=== PATIENT | female | born 1950 | race Caucasian/White ===

== ENCOUNTER 2017-02-26 10:59 | Emergency (ER) | payer MEDICARE, MEDICAID ==
[~2017-02-26] VITALS: Ht 157.5 cm; Wt 77.5 kg
[~2017-02-26 10:59] MED LIST: ASPI-496 PO; LINA5TAB PO; LISI1TAB5 PO; PIOG30TA4 PO; PRAV40TA2 PO; PREG200C PO
[2017-02-26] MEDS ORDERED: SODIUM CHLORIDE FLUSH 10ML SYR IVF ONE (12:00)
[2017-02-26] MEDS ORDERED: SODIUM CHLORIDE 0.9% 1,000ML IVBOLUS ONE (12:00)
[2017-02-26] MEDS ORDERED: ONDANSETRON 2MG/ML, 2ML IVPush ONE (12:00)
[2017-02-26] MEDS ORDERED: ONDANSETRON 2MG/ML, 2ML ONE (12:05)
[2017-02-26 12:14] LABS: HEMOGLOBIN 11.3 g/dL (11.7-16.4); WHITE BLOOD COUNT 7.2 x10^3/uL (3.4-10)
[2017-02-26 12:27] LABS: BLOOD UREA NITROGEN 14 mg/dL (7-18)
[2017-02-26 12:28] LABS: PATH.CAST-FLAG NOT PRESENT; SPERM-FLAG NOT PRESENT; SRC-FLAG NOT PRESENT; XTAL-FLAG NOT PRESENT; YLC-FLAG NOT PRESENT
[2017-02-26 12:28] LABS: ASPARTATE AMINO TRANSFERASE 18 U/L (15-37)
[2017-02-26] MEDS ORDERED: POTASSIUM CHLORIDE 20 MEQ TAB.ER.PRT ONE (13:18)
[2017-02-26] MEDS ORDERED: POTASSIUM CHLORIDE 20 MEQ TAB.ER.PRT PO ONE (13:30)
[2017-02-26 14:55] VITALS: BP 165/78
[2017-02-26] MEDS ORDERED: ONDA8TAB12 PO (20:49)
== END 2017-02-26 15:18 | disposition home or self-care (01) ==
LOC: ED 11:28
DX: R11.0 Nausea (principal); I10 Essential (primary) hypertension; E11.9 Type 2 diabetes mellitus without complications; E78.5 Hyperlipidemia, unspecified
CPT/HCPCS: 36415; 70450; 80053; 81003; 83605; 83690; 85025; 96361; 96374; 99285; J2405; J7030

== ENCOUNTER 2017-02-26 20:22 | Emergency (ER) | payer MEDICARE, MEDICAID ==
[~2017-02-26] VITALS: Ht 157.5 cm; Wt 77.5 kg
[2017-02-26] MEDS ORDERED: ONDA8TAB12 PO (20:49)
[2017-02-26] MEDS ORDERED: OMNIPAQUE 350 MG/ML, 100ML BOTTLE ONE (21:14)
[2017-02-26] MEDS ORDERED: METOCLOPRAMIDE 5 MG/ML, 2ML IVPush ONE (21:30)
[2017-02-26] MEDS ORDERED: SODIUM CHLORIDE FLUSH 10ML SYR IVF ONE (21:30)
[2017-02-26] MEDS ORDERED: SODIUM CHLORIDE 0.9% 1,000ML IVBOLUS ONE (21:30)
[2017-02-26] MEDS ORDERED: METOCLOPRAMIDE 5 MG/ML, 2ML ONE (21:36)
[2017-02-26 21:41] LABS: BLOOD UREA NITROGEN 12 mg/dL (7-18)
[2017-02-26 21:45] LABS: IS PT STATUS REG ER OR PRE ER? YES
[2017-02-26] MEDS ORDERED: PANTOPRAZOLE 40 MG IV IVPush SCH (23:30)
[2017-02-26] MEDS ORDERED: PREGABALIN 200 MG CAPSULE PO ONE (23:30)
[2017-02-26 23:41] VITALS: BP 128/50
== END 2017-02-26 23:43 | disposition home or self-care (01) ==
LOC: ED 21:35
DX: R91.1 Solitary pulmonary nodule (principal); R11.2 Nausea with vomiting, unspecified; R10.32 Left lower quadrant pain; M25.552 Pain in left hip; G89.29 Other chronic pain; I10 Essential (primary) hypertension; E11.9 Type 2 diabetes mellitus without complications; E78.5 Hyperlipidemia, unspecified
CPT/HCPCS: 36415; 74177; 80048; 82040; 84484; 93005; 96361; 96374; 99285; J2765; J7030; Q9967

== ENCOUNTER 2017-04-25 16:10 | Inpatient (IN) | payer MEDICARE, MEDICAID ==
[~2017-04-25] VITALS: Ht 157.5 cm; Wt 86.1 kg
[~2017-04-25 16:10] MED LIST changes: +ONDA8TAB12 PO
[2017-04-25] MEDS ORDERED: morphine SULFATE 10 MG/ML, 1ML ONE (16:39)
[2017-04-25] MEDS: MORPHINE SULFATE 4 MG/ML, 1ML IVPush PRN ×2 (16:42→20:15)
[2017-04-25] MEDS ORDERED: SODIUM CHLORIDE 0.9% 1,000ML IVBOLUS ONE (17:00)
[2017-04-25 17:24] LABS: HEMOGLOBIN 10.6 g/dL (11.7-16.4); WHITE BLOOD COUNT 9.5 x10^3/uL (3.4-10)
[2017-04-25 17:33] LABS: BLOOD UREA NITROGEN 17 mg/dL (7-18)
[2017-04-25 17:40] LABS: IS PT STATUS REG ER OR PRE ER? YES
[2017-04-25] MEDS ORDERED: SODIUM CHLORIDE 0.9% 1,000 ML IV ONE (18:03)
[2017-04-25] MEDS ORDERED: FENTANYL PF 100 MCG/2ML ONE (18:16)
[2017-04-25] MEDS ORDERED: SUCCINYLCHOLINE 20 MG/ML, 10ML ONE (18:19)
[2017-04-25] MEDS ORDERED: PROPOFOL 10 MG/ML, 20ML ONE (18:19)
[2017-04-25] MEDS ORDERED: ROCURONIUM 10 MG/ML,10ML ONE (18:19)
[2017-04-25] MEDS ORDERED: SODIUM CHLORIDE FLUSH 10ML SYR IVF PRN (18:30)
[2017-04-25] MEDS ORDERED: ACETAMINOPHEN 325 MG TABLET PO PRN ×2 (18:30→19:00)
[2017-04-25] MEDS ORDERED: ENALAPRILAT 1.25 MG/ML, 2ML IVPush PRN (18:30)
[2017-04-25] MEDS ORDERED: CEFAZOLIN 1,000 MG ONE (18:50)
[2017-04-25] MEDS ORDERED: METOCLOPRAMIDE 5 MG/ML, 2ML ONE (18:56)
[2017-04-25] MEDS ORDERED: hydrALAzine 20 MG/ML, 1ML IV PRN (19:00)
[2017-04-25] MEDS ORDERED: HYDROmorphone 1 MG/ML, 1ML IV PRN (19:00)
[2017-04-25] MEDS ORDERED: PROMETHAZINE 25 MG/ML, 1ML IV PRN (19:00)
[2017-04-25] MEDS ORDERED: FENTANYL PF 100 MCG/2ML IV PRN (19:00)
[2017-04-25] MEDS ORDERED: OXYcodone 5 MG/5 ML ORAL.SOL UDC PO PRN (19:00)
[2017-04-25] MEDS ORDERED: LABETALOL 5MG/ML, 20ML IV PRN (19:00)
[2017-04-25] MEDS ORDERED: ONDANSETRON 2MG/ML, 2ML IVPush PRN (19:00)
[2017-04-25] MEDS ORDERED: MEPERIDINE/PF 25MG/0.5ML IVPush PRN (19:00)
[2017-04-25] MEDS ORDERED: MORPHINE SULFATE 4 MG/ML, 1ML ONE (20:13)
[2017-04-25] MEDS: morphine SULFATE 10 MG/ML, 1ML IVPush PRN (20:15)
[2017-04-25] MEDS: INSULIN ASPART 100 UNITS/ML, PEN SQ-INSULIN SCH (21:00)
[2017-04-25] MEDS ORDERED: CEFAZOLIN PMX 2GM/100ML 100 ML IVPB SCH (21:30)
[2017-04-25 23:56] VITALS: BP 122/62
[2017-04-26] MEDS: HYDROcodone/APAP 5/325 TABLET PO PRN ×4 (00:53→21:27)
[2017-04-26 02:20] VITALS: BP 121/61
[2017-04-26] MEDS: morphine SULFATE 10 MG/ML, 1ML IVPush PRN ×2 (04:12→08:30)
[2017-04-26] MEDS ORDERED: CEFAZOLIN PMX 2GM/50ML 50 ML IVPB SCH (05:30)
[2017-04-26 05:36] LABS: HEMATOCRIT 27.1 % (34.6-47.8); HEMOGLOBIN 9.3 g/dL (11.7-16.4)
[2017-04-26 05:48] LABS: BLOOD UREA NITROGEN 15 mg/dL (7-18)
[2017-04-26 08:12] VITALS: BP 99/60
[2017-04-26] MEDS: ENOXAPARIN 40 MG/0.4 ML SQ SCH (08:33)
[2017-04-26] MEDS: (Linagliptin** (Tradjenta**) 5 MG) HOMEMEDPO SCH (08:33)
[2017-04-26] MEDS: SODIUM CHLORIDE FLUSH 10ML SYR IVF SCH ×2 (08:34→21:52)
[2017-04-26] MEDS: ASPIRIN 81 MG TABLET EC PO SCH (08:36)
[2017-04-26] MEDS: PIOGLITAZONE 15 MG TABLET PO SCH (08:36)
[2017-04-26] MEDS: PREGABALIN 200 MG CAPSULE PO SCH ×2 (08:37→21:26)
[2017-04-26] MEDS: SENNA/DOCUSATE TABLET PO SCH (08:39)
[2017-04-26] MEDS ORDERED: LISINOPRIL 20 MG TABLET PO SCH (09:00)
[2017-04-26] MEDS ORDERED: HYDROCHLOROTHIAZIDE 12.5 MG CAPSULE PO SCH (09:00)
[2017-04-26] MEDS: INSULIN ASPART 100 UNITS/ML, PEN SQ-INSULIN SCH ×4 (09:45→21:52)
[2017-04-26] MEDS: SODIUM CHLORIDE 0.9% 1,000 ML IV SCH ×2 (09:46→18:07)
[2017-04-26 15:35] VITALS: BP 133/67
[2017-04-26 19:12] VITALS: BP 96/55
[2017-04-26] MEDS: PRAVASTATIN 40 MG TABLET PO SCH (21:26)
[2017-04-27 00:51] VITALS: BP 96/58
[2017-04-27] MEDS: SODIUM CHLORIDE 0.9% 1,000 ML IV SCH ×3 (05:08→21:43)
[2017-04-27 05:42] LABS: HEMATOCRIT 23.1 % (34.6-47.8); HEMOGLOBIN 7.8 g/dL (11.7-16.4); WHITE BLOOD COUNT 7.3 x10^3/uL (3.4-10)
[2017-04-27 05:51] LABS: BLOOD UREA NITROGEN 20 mg/dL (7-18)
[2017-04-27] MEDS: INSULIN ASPART 100 UNITS/ML, PEN SQ-INSULIN SCH ×4 (06:25→22:08)
[2017-04-27 07:15] VITALS: BP 104/57
[2017-04-27] MEDS ORDERED: BISACODYL 10 MG SUPP PR PRN (08:30)
[2017-04-27] MEDS ORDERED: POLYETHYLENE GLYCOL 17 GM PACKET PO PRN (08:30)
[2017-04-27] MEDS: HYDROcodone/APAP 5/325 TABLET PO PRN ×3 (08:41→21:39)
[2017-04-27] MEDS: ENOXAPARIN 40 MG/0.4 ML SQ SCH (08:42)
[2017-04-27] MEDS: SENNA/DOCUSATE TABLET PO SCH (08:42)
[2017-04-27] MEDS: PIOGLITAZONE 15 MG TABLET PO SCH (08:42)
[2017-04-27] MEDS: ASPIRIN 81 MG TABLET EC PO SCH (08:42)
[2017-04-27] MEDS: PREGABALIN 200 MG CAPSULE PO SCH (08:42)
[2017-04-27] MEDS: SODIUM CHLORIDE FLUSH 10ML SYR IVF SCH ×2 (08:43→21:39)
[2017-04-27] MEDS: (Linagliptin** (Tradjenta**) 5 MG) HOMEMEDPO SCH (08:43)
[2017-04-27 10:18] LABS: PATH.CAST-FLAG NOT PRESENT; SPERM-FLAG NOT PRESENT; SRC-FLAG NOT PRESENT; XTAL-FLAG NOT PRESENT; YLC-FLAG NOT PRESENT
[2017-04-27 14:00] VITALS: BP 106/60
[2017-04-27 16:55] LABS: HEMATOCRIT 23.1 % (34.6-47.8); HEMOGLOBIN 7.7 g/dL (11.7-16.4)
[2017-04-27 17:33] LABS: FERRITIN 80.8 ng/mL (8-252)
[2017-04-27 19:55] LABS: HEMOGLOBIN 7.3 g/dL (11.7-16.4)
[2017-04-27 19:58] LABS: HEMATOCRIT 21.9 % (34.6-47.8)
[2017-04-27 20:06] VITALS: BP 109/66
[2017-04-27] MEDS: PRAVASTATIN 40 MG TABLET PO SCH (21:38)
[2017-04-27] MEDS ORDERED: VANCOMYCIN PER PHARMACY MC PRN (23:00)
[2017-04-27] MEDS ORDERED: CEFTRIAXONE PMX 1GM/50ML 50 ML IV SCH (23:00)
[2017-04-27] MEDS ORDERED: PHARMACOKINETIC MONITORING MC PRN (23:00)
[2017-04-28 00:29] VITALS: BP 102/58
[2017-04-28] MEDS: VANCOMYCIN 1,700 MG in SODIUM CHLORIDE 0.9% 250 ML IV SCH ×2 (00:47→23:30)
[2017-04-28 05:34] LABS: HEMOGLOBIN 7.5 g/dL (11.7-16.4); WHITE BLOOD COUNT 7.5 x10^3/uL (3.4-10)
[2017-04-28 05:41] LABS: HEMATOCRIT 21.8 % (34.6-47.8)
[2017-04-28 05:54] LABS: ASPARTATE AMINO TRANSFERASE 12 U/L (15-37); BLOOD UREA NITROGEN 10 mg/dL (7-18)
[2017-04-28] MEDS: HYDROcodone/APAP 5/325 TABLET PO PRN ×2 (06:27→19:34)
[2017-04-28] MEDS: INSULIN ASPART 100 UNITS/ML, PEN SQ-INSULIN SCH ×4 (06:33→20:59)
[2017-04-28 07:09] VITALS: BP 106/64
[2017-04-28] MEDS: SODIUM CHLORIDE FLUSH 10ML SYR IVF SCH ×2 (09:00→19:35)
[2017-04-28] MEDS: ENOXAPARIN 40 MG/0.4 ML SQ SCH (09:27)
[2017-04-28] MEDS: IRON SUCROSE COMPLEX 100MG/5ML IV SCH (09:27)
[2017-04-28] MEDS: SENNA/DOCUSATE TABLET PO SCH (09:28)
[2017-04-28] MEDS: ASPIRIN 81 MG TABLET EC PO SCH (09:28)
[2017-04-28] MEDS: ONDANSETRON 2MG/ML, 2ML IVPush PRN (10:19)
[2017-04-28] MEDS ORDERED: PHARMACY MAY ADJ FOR RENAL FX MC PRN (11:00)
[2017-04-28] MEDS: PIPERACILLIN/TAZO/PMX 4.5GM 100 ML IVPB SCH ×2 (12:07→18:39)
[2017-04-28] MEDS: SODIUM CHLORIDE 0.9% 1,000 ML IV SCH (13:37)
[2017-04-28 14:51] VITALS: BP 110/64
[2017-04-28 19:24] VITALS: BP 126/65
[2017-04-28] MEDS: PRAVASTATIN 40 MG TABLET PO SCH (19:34)
[2017-04-28] MEDS: morphine SULFATE 10 MG/ML, 1ML IVPush PRN (20:56)
[2017-04-29] VITALS (8 sets, daily range): BP systolic 120–139; BP diastolic 43–69
[2017-04-29] MEDS: ONDANSETRON 2MG/ML, 2ML IVPush PRN ×2 (00:45→19:58)
[2017-04-29] MEDS: PIPERACILLIN/TAZO/PMX 4.5GM 100 ML IVPB SCH ×3 (03:16→20:13)
[2017-04-29 05:34] LABS: BLOOD UREA NITROGEN 10 mg/dL (7-18)
[2017-04-29 06:07] LABS: HEMOGLOBIN 7.5 g/dL (11.7-16.4); WHITE BLOOD COUNT 6.4 x10^3/uL (3.4-10)
[2017-04-29 06:09] LABS: HEMATOCRIT 22.1 % (34.6-47.8)
[2017-04-29] MEDS: IRON SUCROSE COMPLEX 100MG/5ML IV SCH (08:49)
[2017-04-29] MEDS: INSULIN ASPART 100 UNITS/ML, PEN SQ-INSULIN SCH ×4 (08:49→21:40)
[2017-04-29] MEDS: ENOXAPARIN 40 MG/0.4 ML SQ SCH (08:50)
[2017-04-29] MEDS: ASPIRIN 81 MG TABLET EC PO SCH (08:50)
[2017-04-29] MEDS: SENNA/DOCUSATE TABLET PO SCH (08:50)
[2017-04-29] MEDS: SODIUM CHLORIDE FLUSH 10ML SYR IVF SCH ×2 (08:50→20:13)
[2017-04-29] MEDS: SODIUM CHLORIDE 0.9% 1,000 ML IV SCH (12:42)
[2017-04-29] MEDS: HYDROcodone/APAP 5/325 TABLET PO PRN ×2 (12:46→17:41)
[2017-04-29] MEDS: FERROUS SULFATE 325 MG TABLET PO SCH (18:14)
[2017-04-29] MEDS ORDERED: VANCOMYCIN PER PHARMACY MC PRN (19:30)
[2017-04-29] MEDS ORDERED: PHARMACY MAY ADJ FOR RENAL FX MC PRN (19:30)
[2017-04-29] MEDS ORDERED: ENALAPRILAT 1.25 MG/ML, 2ML IVPush PRN (19:30)
[2017-04-29] MEDS ORDERED: ACETAMINOPHEN 325 MG TABLET PO PRN (19:30)
[2017-04-29] MEDS ORDERED: BISACODYL 10 MG SUPP PR PRN (19:30)
[2017-04-29] MEDS: morphine SULFATE 10 MG/ML, 1ML IVPush PRN (20:12)
[2017-04-29] MEDS: PRAVASTATIN 40 MG TABLET PO SCH (21:39)
[2017-04-30] MEDS: HYDROcodone/APAP 5/325 TABLET PO PRN ×2 (00:29→22:39)
[2017-04-30] MEDS: VANCOMYCIN 1,700 MG in SODIUM CHLORIDE 0.9% 250 ML IV SCH ×2 (00:33→17:52)
[2017-04-30 03:15] VITALS: BP 160/66
[2017-04-30] MEDS: PIPERACILLIN/TAZO/PMX 4.5GM 100 ML IVPB SCH ×3 (04:12→22:31)
[2017-04-30] MEDS: morphine SULFATE 10 MG/ML, 1ML IVPush PRN ×3 (04:13→16:32)
[2017-04-30] MEDS: ONDANSETRON 2MG/ML, 2ML IVPush PRN ×3 (04:13→16:55)
[2017-04-30 06:08] LABS: BLOOD UREA NITROGEN 10 mg/dL (7-18)
[2017-04-30 06:13] LABS: ASPARTATE AMINO TRANSFERASE 11 U/L (15-37)
[2017-04-30 06:17] LABS: HEMATOCRIT 24.2 % (34.6-47.8); HEMOGLOBIN 8.2 g/dL (11.7-16.4); WHITE BLOOD COUNT 5.3 x10^3/uL (3.4-10)
[2017-04-30] MEDS: METOCLOPRAMIDE 5 MG/ML, 2ML IVPush PRN ×2 (06:39→16:32)
[2017-04-30 06:56] VITALS: BP 138/71
[2017-04-30] MEDS: FERROUS SULFATE 325 MG TABLET PO SCH ×3 (08:50→16:55)
[2017-04-30] MEDS: IRON SUCROSE COMPLEX 100MG/5ML IV SCH (08:50)
[2017-04-30] MEDS: INSULIN ASPART 100 UNITS/ML, PEN SQ-INSULIN SCH ×4 (08:50→22:40)
[2017-04-30] MEDS: ENOXAPARIN 40 MG/0.4 ML SQ SCH (08:50)
[2017-04-30] MEDS: SENNA/DOCUSATE TABLET PO SCH ×2 (08:51→11:50)
[2017-04-30] MEDS: SODIUM CHLORIDE FLUSH 10ML SYR IVF SCH ×2 (08:51→22:31)
[2017-04-30] MEDS: ASPIRIN 81 MG TABLET EC PO SCH (08:52)
[2017-04-30] MEDS: SODIUM CHLORIDE 0.9% 1,000 ML IV SCH (09:00)
[2017-04-30 14:57] VITALS: BP 150/69
[2017-04-30 18:56] VITALS: BP 135/54
[2017-04-30] MEDS: PRAVASTATIN 40 MG TABLET PO SCH ×2 (22:31→22:39)
[2017-05-01] MEDS: HYDROcodone/APAP 5/325 TABLET PO PRN ×4 (00:08→21:22)
[2017-05-01] MEDS: morphine SULFATE 10 MG/ML, 1ML IVPush PRN (00:08)
[2017-05-01 02:00] VITALS: BP 134/62
[2017-05-01] MEDS: PIPERACILLIN/TAZO/PMX 4.5GM 100 ML IVPB SCH ×4 (05:39→21:18)
[2017-05-01 08:00] VITALS: BP 136/63
[2017-05-01] MEDS: FERROUS SULFATE 325 MG TABLET PO SCH ×3 (08:05→17:00)
[2017-05-01] MEDS: ENOXAPARIN 40 MG/0.4 ML SQ SCH (08:05)
[2017-05-01] MEDS: INSULIN ASPART 100 UNITS/ML, PEN SQ-INSULIN SCH ×4 (08:05→20:47)
[2017-05-01] MEDS: SENNA/DOCUSATE TABLET PO SCH (09:11)
[2017-05-01] MEDS: ASPIRIN 81 MG TABLET EC PO SCH (09:11)
[2017-05-01] MEDS: SODIUM CHLORIDE FLUSH 10ML SYR IVF SCH ×2 (09:11→20:39)
[2017-05-01] MEDS ORDERED: CEFD300C37 PO (09:42)
[2017-05-01] MEDS ORDERED: HYDR-3240 PO (09:42)
[2017-05-01] MEDS ORDERED: FERR-36 PO (09:42)
[2017-05-01] MEDS ORDERED: POLY17PO5 PO (09:42)
[2017-05-01] MEDS ORDERED: AZIT500T PO (09:42)
[2017-05-01] MEDS: ONDANSETRON 2MG/ML, 2ML IVPush PRN (10:21)
[2017-05-01] MEDS: VANCOMYCIN 1,700 MG in SODIUM CHLORIDE 0.9% 250 ML IV SCH (12:39)
[2017-05-01 13:29] VITALS: BP 128/55
[2017-05-01] MEDS ORDERED: POTASSIUM CHLORIDE 20 MEQ TAB.ER.PRT PO ONE (16:00)
[2017-05-01] MEDS ORDERED: CALCIUM CARBONATE 500 MG TAB.CHEW PO PRN (20:30)
[2017-05-01 20:34] VITALS: BP 121/53
[2017-05-01] MEDS: SODIUM CHLORIDE 0.9% 1,000 ML IV SCH (20:48)
[2017-05-02 01:36] VITALS: BP 129/71
[2017-05-02] MEDS: ONDANSETRON 2MG/ML, 2ML IVPush PRN (04:43)
[2017-05-02] MEDS: HYDROcodone/APAP 5/325 TABLET PO PRN ×2 (05:36→11:47)
[2017-05-02] MEDS: PIPERACILLIN/TAZO/PMX 4.5GM 100 ML IVPB SCH ×2 (05:37→15:17)
[2017-05-02 05:39] LABS: HEMATOCRIT 24.4 % (34.6-47.8); HEMOGLOBIN 8.2 g/dL (11.7-16.4)
[2017-05-02 06:09] LABS: BLOOD UREA NITROGEN 11 mg/dL (7-18)
[2017-05-02] MEDS: VANCOMYCIN 1,700 MG in SODIUM CHLORIDE 0.9% 250 ML IV SCH (06:13)
[2017-05-02] MEDS: ENOXAPARIN 40 MG/0.4 ML SQ SCH (08:01)
[2017-05-02 08:20] VITALS: BP 130/64
[2017-05-02] MEDS: SODIUM CHLORIDE FLUSH 10ML SYR IVF SCH (08:37)
[2017-05-02] MEDS: INSULIN ASPART 100 UNITS/ML, PEN SQ-INSULIN SCH ×2 (08:37→11:47)
[2017-05-02] MEDS: ASPIRIN 81 MG TABLET EC PO SCH (08:37)
[2017-05-02] MEDS: SENNA/DOCUSATE TABLET PO SCH (08:37)
[2017-05-02] MEDS: FERROUS SULFATE 325 MG TABLET PO SCH ×2 (08:37→11:47)
[2017-05-02] MEDS: SODIUM CHLORIDE 0.9% 1,000 ML IV SCH (15:00)
[2017-05-02 15:40] VITALS: BP 121/70
== END 2017-05-02 16:13 | DRG 480 ==
LOC: ED 16:44 → EDIP 18:03 → 4NOR 20:51
PROVIDERS: ADMIT Family Medicine; ATTEND Family Medicine
PROC: 0QS606Z Reposition Right Upper Femur with Intramedullary Internal Fixation Device, Open Approach (ICD-10-PCS; principal; 2017-04-25 17:30)
PROC: 30233N1 Transfusion of Nonautologous Red Blood Cells into Peripheral Vein, Percutaneous Approach (ICD-10-PCS; 2017-04-29)
DX: S72.001A Fracture of unspecified part of neck of right femur, initial encounter for closed fracture (principal); A41.9 Sepsis, unspecified organism; J96.01 Acute respiratory failure with hypoxia; E43 Unspecified severe protein-calorie malnutrition; G93.40 Encephalopathy, unspecified; J18.9 Pneumonia, unspecified organism; N39.0 Urinary tract infection, site not specified; E11.40 Type 2 diabetes mellitus with diabetic neuropathy, unspecified; E66.9 Obesity, unspecified; D50.9 Iron deficiency anemia, unspecified; D63.8 Anemia in other chronic diseases classified elsewhere; Z68.34 Body mass index [BMI] 34.0-34.9, adult; E78.5 Hyperlipidemia, unspecified; I10 Essential (primary) hypertension; W18.30XA Fall on same level, unspecified, initial encounter; Z79.84 Long term (current) use of oral hypoglycemic drugs; Z79.899 Other long term (current) drug therapy; Z83.3 Family history of diabetes mellitus; Z85.828 Personal history of other malignant neoplasm of skin; Z86.72 Personal history of thrombophlebitis; Y93.89 Activity, other specified; Y92.89 Other specified places as the place of occurrence of the external cause; Y99.8 Other external cause status
CPT/HCPCS: 36415; 70450; 71010; 72190; 76000; 80048; 80053; 80202; 81001; 82040; 82607; 82728; 82962; 83540; 83550; 83735; 84100; 84145; 84443; 84466; 84484; 85014; 85018; 85025; 85610; 86850; 86900; 86923; 87040; 87086; 93005; 96360; C1713; J0690; J0696; J1650; J1756; J1815; J2405; J2543; J2704; J3010; J3370; J0330; J2270; J2765; J7030; J7050; P9016

== ENCOUNTER 2018-04-18 10:02 | Observation (INO) | payer MEDICARE, MEDICAID ==
[~2018-04-18] VITALS: Ht 160 cm; Wt 71.1 kg
[~2018-04-18 10:02] MED LIST changes: +ALPR0.25 PO; +AZIT500T PO; +CEFD300C37 PO; +FERR-51 PO; +HYDR-3240 PO; +LISI1TAB7 PO; +MECL12.5 PO; +METF500T17 PO; +METF500T27 PO; +OMEP-110 PO; +POLY17PO5 PO; +PREG150C PO; +TRAM50TA2 PO
[2018-04-18] MEDS ORDERED: ASPIRIN 81 MG TABLET CHEW ONE (10:26)
[2018-04-18] MEDS ORDERED: KETOROLAC 30 MG/1 ML ONE (10:26)
[2018-04-18] MEDS ORDERED: ASPIRIN 81 MG TABLET CHEW PO ONE (10:30)
[2018-04-18] MEDS ORDERED: SODIUM CHLORIDE FLUSH 10ML SYR IVF ONE (10:30)
[2018-04-18] MEDS ORDERED: KETOROLAC 30 MG/1 ML IVPush ONE (10:30)
[2018-04-18] MEDS ORDERED: meclizine (10:47)
[2018-04-18 10:58] LABS: BASOPHILS # (AUTO) 0.03 x10^3/uL (0-0.1); BASOPHILS % (AUTO) 0 % (0-1); EOSINOPHILS # (AUTO) 0.07 x10^3/uL (0-0.4); EOSINOPHILS % (AUTO) 1 % (1-7); LYMPHOCYTES # (AUTO) 2.58 x10^3/uL (1-3.4); LYMPHOCYTES % (AUTO) 20 % (22-44); MD NO; MEAN CORPUSCULAR HEMOGLOBIN 30.5 pg (27.0-34.8); MEAN CORPUSCULAR HGB CONC 32.9 g/dL (32.4-35.8); MEAN CORPUSCULAR VOLUME 92.7 fL (80-100); MONOCYTES # (AUTO) 0.54 x10^3/uL (0.2-0.8); MONOCYTES % (AUTO) 4 % (2-9); NEUTROPHILS # (AUTO) 9.61 x10^3/uL (1.8-6.8); NEUTROPHILS % (AUTO) 75 % (42-75); PLATELET COUNT 303 x10^3/uL (130-400); RED BLOOD COUNT 3.98 x10^6/uL (3.82-5.3); RED CELL DISTRIBUTION WIDTH 13.9 % (9.6-15.2)
[2018-04-18 11:05] LABS: ALBUMIN 3.3 g/dL (3.4-5.0); ANION GAP 6 mmol/L (5-15); CALCIUM 8.9 mg/dL (8.5-10.1); CHLORIDE 101 mmol/L (98-107)
[2018-04-18 11:11] LABS: ALANINE AMINOTRANSFERASE 26 U/L (12-78); ALKALINE PHOSPHATASE 102 U/L (45-117); BILIRUBIN,TOTAL 0.4 mg/dL (0.2-1.0); CREATININE 0.63 mg/dL (0.55-1.02); TOTAL PROTEIN 7.2 g/dL (6.4-8.2); TROPONIN I < 0.015 ng/mL (0.000-0.045)
[2018-04-18] MEDS ORDERED: LABETALOL 5MG/ML, 20ML IVPush PRN (13:30)
[2018-04-18] MEDS ORDERED: MECLIZINE 12.5 MG TABLET PO PRN (13:30)
[2018-04-18] MEDS ORDERED: ONDANSETRON ODT 4 MG PO PRN (13:30)
[2018-04-18] MEDS ORDERED: ONDANSETRON 2MG/ML, 2ML IVPush PRN (13:30)
[2018-04-18 15:23] VITALS: BP 129/62
[2018-04-18] MEDS ORDERED: ENOXAPARIN 40 MG/0.4 ML SQ SCH (15:30)
[2018-04-18] MEDS: INSULIN LISPRO 100 UNITS/ML, PEN SQ-INSULIN SCH ×2 (18:00→21:00)
[2018-04-18] MEDS ORDERED: NITROGLYCERIN 0.4 MG BOTTLE (25 TABS) SL PRN (18:00)
[2018-04-18] MEDS ORDERED: NITROGLYCERIN 0.4 MG/SPRAY SL PRN (18:00)
[2018-04-18 18:51] LABS: TROPONIN I < 0.015 ng/mL (0.000-0.045)
[2018-04-18 19:58] VITALS: BP 122/58
[2018-04-18] MEDS ORDERED: PREGABALIN 150 MG PO SCH (21:00)
[2018-04-18] MEDS ORDERED: PRAVASTATIN 40 MG TABLET PO SCH (21:00)
[2018-04-18] MEDS: PREGABALIN 200 MG CAPSULE PO SCH (21:11)
[2018-04-18] MEDS: OMEPRAZOLE 20 MG CAPSULE.DR PO SCH (21:11)
[2018-04-19 00:54] LABS: TROPONIN I < 0.015 ng/mL (0.000-0.045)
[2018-04-19 01:32] VITALS: BP 116/55
[2018-04-19 05:24] LABS: ALBUMIN 2.6 g/dL (3.4-5.0); ANION GAP 8 mmol/L (5-15); CALCIUM 8.2 mg/dL (8.5-10.1); CHLORIDE 102 mmol/L (98-107)
[2018-04-19 05:32] LABS: ALANINE AMINOTRANSFERASE 23 U/L (12-78); ALKALINE PHOSPHATASE 83 U/L (45-117); BILIRUBIN,TOTAL 0.4 mg/dL (0.2-1.0); CHOLESTEROL, TOTAL 155 mg/dL (140-239); CREATININE 0.75 mg/dL (0.55-1.02); HDL CHOL % 33 % (28-40); HDL CHOLESTEROL (DIRECT) 51 mg/dL (40-60); LDL CHOLESTEROL,CALCULATED 64 mg/dL (54-169); LDL/HDL RATIO 1.3 (0.5-3.0); TRIGLYCERIDES 202 mg/dL (50-200); VLDL CHOLESTEROL 40 mg/dL (0-25)
[2018-04-19] MEDS ORDERED: ASPIRIN 325 MG TABLET EC PO SCH (06:00)
[2018-04-19 06:11] LABS: HEMOGLOBIN A1C 8.4 % (4.2-6.3)
[2018-04-19 06:42] LABS: BASOPHILS # (AUTO) 0.03 x10^3/uL (0-0.1); BASOPHILS % (AUTO) 0 % (0-1); EOSINOPHILS # (AUTO) 0.12 x10^3/uL (0-0.4); EOSINOPHILS % (AUTO) 1 % (1-7); LYMPHOCYTES # (AUTO) 2.44 x10^3/uL (1-3.4); LYMPHOCYTES % (AUTO) 30 % (22-44); MD NO; MEAN CORPUSCULAR HEMOGLOBIN 31.5 pg (27.0-34.8); MEAN CORPUSCULAR HGB CONC 33.9 g/dL (32.4-35.8); MEAN CORPUSCULAR VOLUME 92.7 fL (80-100); MEAN PLATELET VOLUME 8.5 fL (7.4-10.4); MONOCYTES # (AUTO) 0.56 x10^3/uL (0.2-0.8); MONOCYTES % (AUTO) 7 % (2-9); NEUTROPHILS # (AUTO) 5.12 x10^3/uL (1.8-6.8); NEUTROPHILS % (AUTO) 62 % (42-75); PLATELET COUNT 278 x10^3/uL (130-400); RED BLOOD COUNT 3.49 x10^6/uL (3.82-5.3); RED CELL DISTRIBUTION WIDTH 13.8 % (9.6-15.2)
[2018-04-19] MEDS: INSULIN LISPRO 100 UNITS/ML, PEN SQ-INSULIN SCH ×3 (07:00→16:00)
[2018-04-19] MEDS ORDERED: PANTOPRAZOLE 40 MG IV IVPush SCH (07:30)
[2018-04-19] MEDS ORDERED: MAGNESIUM SULFATE PMX 2GM/50ML 50 ML IV ONE (08:30)
[2018-04-19] MEDS ORDERED: REGADENOSON 0.4 MG/5 ML SYRINGE ONE (08:48)
[2018-04-19 08:50] VITALS: BP 120/68
[2018-04-19] MEDS: OMEPRAZOLE 20 MG CAPSULE.DR PO SCH (08:51)
[2018-04-19] MEDS: PREGABALIN 200 MG CAPSULE PO SCH (08:52)
[2018-04-19] MEDS ORDERED: LINAGLIPTIN 5 MG TAB PO SCH (09:00)
[2018-04-19] MEDS ORDERED: METOCLOPRAMIDE 5 MG/ML, 2ML IVPush PRN (09:00)
[2018-04-19 13:50] VITALS: BP 102/62
== END 2018-04-19 20:51 | disposition home or self-care (01) ==
LOC: MERGE 10:02 → UNMERGE 10:02 → ED 13:39 → EDIP 13:40 → INTOOBSV 13:40 → 5SO 15:06
PROVIDERS: ADMIT Family Medicine; ATTEND Hospitalist
DX: R07.89 Other chest pain (principal); D72.829 Elevated white blood cell count, unspecified; E78.5 Hyperlipidemia, unspecified; I10 Essential (primary) hypertension; K21.9 Gastro-esophageal reflux disease without esophagitis; R91.1 Solitary pulmonary nodule; E11.42 Type 2 diabetes mellitus with diabetic polyneuropathy; Z79.84 Long term (current) use of oral hypoglycemic drugs; Z83.3 Family history of diabetes mellitus; Z85.828 Personal history of other malignant neoplasm of skin; Z86.72 Personal history of thrombophlebitis
CPT/HCPCS: 36415; 71045; 71275; 78452; 80053; 80061; 82962; 83036; 83735; 84100; 84439; 84443; 84484; 85025; 85379; 93005; 93017; 93306; 96365; 96372; 96375; 99285; A9502; C9113; C9898; G0378; J1650; J1815; J1885; J2785; J3475; 96374

== ENCOUNTER 2020-02-18 21:49 | Emergency (ER) | payer MEDICARE, MEDICAID ==
[~2020-02-18] VITALS: Ht 160 cm; Wt 80.0 kg
[~2020-02-18 21:49] MED LIST changes: +ATOR20TA37 PO; +HYDR25TA6 PO; +LISI-170 PO; +LISI1TAB19 PO; +LISI1TAB20 PO; -LISI1TAB5 PO; -LISI1TAB7 PO; +MIRT-34 PO; -PIOG30TA4 PO; +PIOG30TA68 PO; +meclizine
[2020-02-18] MEDS ORDERED: ONDANSETRON 2MG/ML, 2ML ONE (22:42)
--- NOTE | 2020-02-18 22:55 | NUR ---
PT MEDICATED PER MAR
[2020-02-18] MEDS ORDERED: SODIUM CHLORIDE 0.9% 1,000ML IVBOLUS ONE (23:00)
[2020-02-18] MEDS ORDERED: ONDANSETRON 2MG/ML, 2ML IVPush ONE (23:00)
[2020-02-18] MEDS ORDERED: SODIUM CHLORIDE FLUSH 10ML SYR IVF ONE (23:00)
[2020-02-18 23:09] LABS: BASOPHILS # (AUTO) 0.03 x10^3/uL (0-0.1); BASOPHILS % (AUTO) 0 % (0-1); EOSINOPHILS # (AUTO) 0.13 x10^3/uL (0-0.4); EOSINOPHILS % (AUTO) 1 % (1-7); LYMPHOCYTES # (AUTO) 1.67 x10^3/uL (1-3.4); LYMPHOCYTES % (AUTO) 16 % (22-44); MD NO; MEAN CORPUSCULAR HEMOGLOBIN 30.2 pg (27.0-34.8); MEAN CORPUSCULAR HGB CONC 33.1 g/dL (32.4-35.8); MEAN CORPUSCULAR VOLUME 91.5 fL (80-100); MEAN PLATELET VOLUME 8.7 fL (7.4-10.4); MONOCYTES # (AUTO) 0.41 x10^3/uL (0.2-0.8); MONOCYTES % (AUTO) 4 % (2-9); NEUTROPHILS # (AUTO) 8.28 x10^3/uL (1.8-6.8); NEUTROPHILS % (AUTO) 79 % (42-75); PLATELET COUNT 339 x10^3/uL (130-400); RED BLOOD COUNT 3.98 x10^6/uL (3.82-5.3); RED CELL DISTRIBUTION WIDTH 14.4 % (9.6-15.2)
[2020-02-18 23:18] LABS: MICROSCOPIC NOT IND
[2020-02-18 23:21] LABS: ALANINE AMINOTRANSFERASE 22 U/L (12-78); ALBUMIN 3.2 g/dL (3.4-5.0); ANION GAP 7 mmol/L (5-15); CALCIUM 8.7 mg/dL (8.5-10.1); CHLORIDE 97 mmol/L (98-107); CREATININE 0.72 mg/dL (0.55-1.02)
[2020-02-18 23:23] LABS: ALKALINE PHOSPHATASE 112 U/L (45-117); BILIRUBIN,TOTAL 0.4 mg/dL (0.2-1.0); TOTAL PROTEIN 7.1 g/dL (6.4-8.2)
[2020-02-18 23:33] VITALS: BP 141/55
--- NOTE | 2020-02-18 23:33 | NUR ---
SON IS BEDSIDE AT THIS TIME.
[2020-02-19] LABS: TROPONIN I < 0.015 ng/mL (0.000-0.045)
[2020-02-19] MEDS ORDERED: PROMETHAZINE 25 MG/ML, 1ML ONE (00:17)
[2020-02-19] MEDS ORDERED: PROMETHAZINE 25 MG/ML, 1ML IM ONE (00:30)
== END 2020-02-19 00:42 | disposition home or self-care (01) ==
LOC: ED 02-19 00:41
DX: K29.00 Acute gastritis without bleeding (principal); E11.65 Type 2 diabetes mellitus with hyperglycemia; E87.1 Hypo-osmolality and hyponatremia; E78.5 Hyperlipidemia, unspecified; I10 Essential (primary) hypertension
CPT/HCPCS: 36415; 80053; 81003; 83690; 84484; 85025; 93005; 96361; 96372; 96374; 99284; J2405; J2550; J7030

== ENCOUNTER 2020-06-23 19:02 | Emergency (ER) | payer MEDICARE, MEDICAID ==
[~2020-06-23] VITALS: Ht 162.6 cm; Wt 80.0 kg
[~2020-06-23 19:02] MED LIST changes: -LISI1TAB19 PO; +LISI1TAB39 PO
--- NOTE | 2020-06-23 19:34 | NUR ---
pt to room from lobby
--- NOTE | 2020-06-23 19:48 | NUR ---
Patient comes in with complaints of n/v that started yesterday. States its been going on all day. Patient also states that her b/p has been high. Took her medication for it and its hasn't helped. Patient is unsure of the name of the medication she is on for her b/p. Patient placed on monitor and storage bin tender, son at bedside. Offers no complaints at this time.
[2020-06-23] MEDS ORDERED: SODIUM CHLORIDE 0.9% 1,000ML IVBOLUS ONE (20:30)
[2020-06-23] MEDS ORDERED: ONDANSETRON 2MG/ML, 2ML IVPush ONE (20:30)
[2020-06-23] MEDS ORDERED: SODIUM CHLORIDE FLUSH 10ML SYR IVF ONE (20:30)
[2020-06-23] MEDS ORDERED: ONDANSETRON 2MG/ML, 2ML ONE ×2 (20:49→20:51)
[2020-06-23 21:05] LABS: BASOPHILS % (AUTO) 1 % (0-1); EOSINOPHILS % (AUTO) 1 % (1-7); LYMPHOCYTES % (AUTO) 19 % (22-44); MEAN CORPUSCULAR HEMOGLOBIN 31.1 pg (27.0-34.8); MEAN CORPUSCULAR HGB CONC 34.5 g/dL (32.4-35.8); MEAN PLATELET VOLUME 8.7 fL (7.4-10.4); MONOCYTES % (AUTO) 5 % (2-9); NEUTROPHILS % (AUTO) 75 % (42-75); PLATELET COUNT 344 x10^3/uL (130-400); RED BLOOD COUNT 3.76 x10^6/uL (3.82-5.3)
[2020-06-23 21:08] LABS: ALANINE AMINOTRANSFERASE 25 U/L (12-78); ALBUMIN 3.3 g/dL (3.4-5.0); ANION GAP 6 mmol/L (5-15); CALCIUM 8.9 mg/dL (8.5-10.1); CHLORIDE 94 mmol/L (98-107); CREATININE 0.82 mg/dL (0.55-1.02)
[2020-06-23 21:10] LABS: ALKALINE PHOSPHATASE 102 U/L (45-117); BILIRUBIN,TOTAL 0.4 mg/dL (0.2-1.0); MD NO; TOTAL PROTEIN 6.9 g/dL (6.4-8.2)
[2020-06-23 21:17] LABS: MICROSCOPIC AUTO
--- NOTE | 2020-06-23 21:42 | NUR ---
Patient given crackers and water for PO challenge. Will reassess in 15 mins
--- NOTE | 2020-06-23 21:56 | NUR ---
Patient tolerated po challenage
[2020-06-23 22:06] VITALS: BP 138/58
== END 2020-06-23 22:08 | disposition home or self-care (01) ==
LOC: ED 21:51
DX: R11.2 Nausea with vomiting, unspecified (principal); I10 Essential (primary) hypertension; R30.0 Dysuria; E78.5 Hyperlipidemia, unspecified; E11.65 Type 2 diabetes mellitus with hyperglycemia
CPT/HCPCS: 36415; 74022; 80053; 81001; 83690; 85025; 93005; 96361; 96374; 99285; J2405; J7030

== ENCOUNTER 2020-12-01 15:43 | Emergency (ER) | payer MEDICARE, MEDICAID ==
[~2020-12-01] VITALS: Ht 157.5 cm; Wt 79.6 kg
[~2020-12-01 15:43] MED LIST changes: +HYDR-2214 PO; -HYDR-3240 PO; +MIRT-14 PO; -MIRT-34 PO
--- NOTE | 2020-12-01 17:06 | NUR ---
PT STATES ON MONDAY WAS TRAVELING BACK [facility] AND HAD A SYNCOPAL EPISODE AT THE [place] STATES SHE THINKS SHE WAS UNCONCIOUS FOR 20 MINUTES. STATES THAT SHE HAS HAD HEAD PAIN THAT GOES DOWN ALL AROUND THE NECK AND ACROSS THE LEFT SIDE OF CHEST. SHE STATES DOESN'T HAVE MUCH PAIN IF JUST SITS THERE BUT IF SHE TOUCHES IT 8/10 PAIN.
--- NOTE | 2020-12-01 18:22 | NUR ---
OFF FLOOR TO CT
--- NOTE | 2020-12-01 18:35 | NUR ---
RETURNED FROM CT. FAMILY AT BEDSIDE.
--- NOTE | 2020-12-01 18:57 | NUR ---
REPORT GIVEN TO [facility] RN'S TO ASSUME CARE.
[2020-12-01 19:06] VITALS: BP 144/53
== END 2020-12-01 19:09 | disposition home or self-care (01) ==
LOC: ED 18:22
DX: S16.1XXA Strain of muscle, fascia and tendon at neck level, initial encounter (principal); S00.93XA Contusion of unspecified part of head, initial encounter; S20.212A Contusion of left front wall of thorax, initial encounter; W20.8XXA Other cause of strike by thrown, projected or falling object, initial encounter; Y93.89 Activity, other specified; Y92.89 Other specified places as the place of occurrence of the external cause; Y99.8 Other external cause status
CPT/HCPCS: 70450; 72125; 72131; 99285